=== PATIENT | male | born 1980 | race Two or more races ===

== ENCOUNTER 2016-03-19 04:40 | Emergency (ER) | payer SELFPAY ==
[~2016-03-19] VITALS: Ht 172.7 cm; Wt 70.8 kg
[2016-03-19] MEDS ORDERED: HALOPERIDOL LACTATE INJ 5 MG/ML VIAL ONE (04:43)
[2016-03-19] MEDS ORDERED: LORAZEPAM INJ 2 MG/ML VIAL ONE ×2 (04:43→04:53)
[2016-03-19] MEDS ORDERED: diphenhydrAMINE HCL 50 MG/ML VIAL ONE (04:43)
[2016-03-19] MEDS ORDERED: LORAZEPAM INJ 2 MG/ML VIAL IM ONE ×2 (05:00)
[2016-03-19] MEDS ORDERED: diphenhydrAMINE HCL 50 MG/ML VIAL IM ONE (05:00)
[2016-03-19] MEDS ORDERED: HALOPERIDOL LACTATE INJ 5 MG/ML VIAL IM ONE (05:00)
[2016-03-19 05:29] LABS: BASOPHILS % (AUTO) 0.2 % (0.0-2.0); DIFF TOTAL % 100 %; EOSINOPHILS # (AUTO) 0.1 /CMM (0.0-0.7); EOSINOPHILS % (AUTO) 0.5 % (0.0-6.0); HEMATOCRIT 47 % (39-51); HEMOGLOBIN 15.9 g/dL (13.5-17.5); LYMPHOCYTES # (AUTO) 4.5 /CMM (0.8-4.8); LYMPHOCYTES % (AUTO) 38.2 % (20.0-44.0); MEAN CORPUSCULAR HEMOGLOBIN 30 PG (26.0-33.0); MEAN CORPUSCULAR HGB CONC 34 g/dl (31.0-36.0); MEAN CORPUSCULAR VOLUME 88 fL (80-96); MONOCYTES # (AUTO) 0.5 /CMM (0.1-1.30); MONOCYTES % (AUTO) 4.6 % (2.0-12.0); NEUTROPHILS # (AUTO) 6.6 /CMM (1.8-8.9); NEUTROPHILS % (AUTO) 56.5 % (43.0-81.0); PLATELET COUNT (AUTO) 277 /CMM (150-450); RED BLOOD CELL COUNT(AUTO) 5.34 MIL/uL (4.5-6.0); WHITE BLOOD COUNT (AUTO) 11.7 K/uL (4.3-11.0)
[2016-03-19 05:37] LABS: CALCIUM, SERUM 8.5 mg/dL (8.5-10.1); CREATININE 1.2 mg/dL (0.6-1.3); POTASSIUM 3.9 mmol/L (3.5-5.1)
[2016-03-19 05:43] LABS: ALBUMIN 4.3 g/dL (3.4-5.0); BILIRUBIN,DIRECT 0.1 mg/dL (0.0-0.2); BILIRUBIN,TOTAL 0.3 mg/dL (0.2-1.0); INDIRECT BILIRUBIN 0.2 mg/dL (0.0-1.1); SALICYLATE 4.8 mg/dL (2.8-20.0); TOTAL PROTEIN, SERUM 8.6 g/dL (6.4-8.2)
[2016-03-19 07:46] LABS: ADD UA MICROSCOPIC NO; KETONES,URINE NEGATIVE (NEGATIVE); LEUKOCYTE ESTERASE ,URINE NEGATIVE (NEGATIVE); PH,URINE 5.5 (5.0-8.0)
[2016-03-19 07:54] LABS: PHENCYCLIDINE SCREEN,URINE NEGATIVE (NEGATIVE)
[2016-03-19 08:04] LABS: CANNABINOID, URINE POSITIVE (NEGATIVE)
[2016-03-19 12:54] VITALS: BP 118/72
== END 2016-03-19 12:55 | disposition home or self-care (01) ==
LOC: ER 04:41
DX: R45.1 Restlessness and agitation (principal); T50.995A Adverse effect of other drugs, medicaments and biological substances, initial encounter; Y92.89 Other specified places as the place of occurrence of the external cause; F32.9 Major depressive disorder, single episode, unspecified; F41.9 Anxiety disorder, unspecified; R41.82 Altered mental status, unspecified
CPT/HCPCS: 36415; 80048-TC; 80076-TC; 80305; 81000-TC; 85025-TC; A4606; G0480; G6039-TC; J1200; J1630; J2060; Z7610